=== PATIENT | male | born 1980 | race Caucasian/White ===

== ENCOUNTER 2025-08-16 18:18 | Emergency (ER) | payer OTHER, SELFPAY ==
[2025-08-16 18:31] VITALS: BP 184/104; PULSE 96; RESP 20; TEMP 37; O2SAT 99
--- NOTE | 2025-08-16 20:47 | ED.WOUNDLAC ---
HPI - Wound/Laceration General Chief Complaint: Wound/Laceration Stated Complaint: sore on butt Time Seen by Provider: 08/16/25 20:32 Source: patient and family Mode of arrival: ambulatory Limitations: no limitations History of Present Illness HPI narrative: This is a 45-year-old male with history of diabetes who presents the ED a skin infection. Patient states that for the past week he has noticed a bump to his right posterior upper thigh. He states that yesterday, he began to drain. He has been having worsening pain to the area since then. Denies fevers or chills. Denies burning with he went to urgent care today and he was referred here for further evaluation. Related Data Allergies Allergy/AdvReac Type Severity Reaction Status Date / Time No Known Allergies Allergy Verified 08/16/25 20:41 Review of Systems Review of Systems: Gen.: Denies fevers or chills Eyes: Denies eye pain or visual change ENT: Denies congestion Respiratory: Denies shortness of breath or cough CV: Denies chest pain or palpitations GI: Denies abdominal pain nausea, emesis or diarrhea denies burning, urgency, frequency or hematuria Musculoskeletal: Denies back pain or muscle pain Neuro: Denies numbness, tingling, weakness or focal weakness Skin: As per HPI Except as documented, all other systems reviewed and negative Exam Narrative: APPEARANCE: No acute distress, nontoxic, resting in bed HEENT: Normocephalic, atraumatic, OMM RESPIRATORY: No respiratory distress CARDIOVASCULAR: Appears well perfused ABDOMINAL: Nondistended MUSCULOSKELETAl: Moves all extremities. No obvious deformities NEURO: Awake and alert. SKIN:: 1 x 1 cm area of fluctuance with a small amount of purulosanguinous drainage PSYCHIATRIC: Normal affect/mood, Course Vital Signs Vital signs: Vital Signs Temperature 98.6 F 08/16/25 18:31 Pulse Rate 96 08/16/25 18:31 Respiratory Rate 20 08/16/25 18:31 Blood Pressure 184/104 H 08/16/25 18:31 Pulse Oximetry 99 08/16/25 18:31 Oxygen Delivery Room Air 08/16/25 18:31 Temperature 97.6 F 08/16/25 21:23 Pulse Rate 93 08/16/25 21:23 Respiratory Rate 18 08/16/25 21:23 Blood Pressure 134/81 08/16/25 21:23 Pulse Oximetry 98 08/16/25 21:23 Oxygen Delivery Room Air 08/16/25 18:31 Procedures Abscess I/D lower extremity: Date of Incision: 08/16/25 Time of Incision: 20:45 Side (if applicable): right Local Anesthetic: lidocaine 1% and with epi Amount of anesthesia used (mL): 4 Technique: incised with #11 blade Amount of fluid expressed (mL): 5 Irrigation: No Packing used?: iodoform I&D Results: Blood MDM MDM Narrative Medical decision making narrative: 45-year-old male Presenting for right posterior thigh wound. On initial evaluation patient was in no acute distress afebrile, hemodynamic stable. Differentials include but are not limited to: Abscess, cellulitis, hematoma Notable exam findings: 1 x 1 cm area of fluctuance to the right posterior upper thigh just inferior to the buttock There was a small amount drainage from the abscess there was bloody but there did feel to be some fluctuance stone because of this and the urine seizure. Review cultures were obtained. Patient will be started Bactrim. He was advised follow-up with PCP in the next week for re-evaluation. Patient and family were agreeable to this plan. Given strict return precautions. Differential Diagnosis Differential Diagnosis: Abscess, cellulitis, hematoma Discharge Plan Discharge Clinical Impression: Abscess Patient Disposition: Home Condition: Stable Instructions: Antibiotic Form, Abscess (ED) Additional Instructions: Change packing every other day. Take Bactrim as prescribed. Follow up with her PCP in the next few days for re-evaluation. Return to the ED for any new or worse symptoms. Patient Language: Surinamese Prescriptions: New sulfamethoxazole-trimethoprim [Bactrim DS] 800-160 mg tablet 1 tablet PO Q12H 7 Days Qty: 14 0RF Follow-up/Referrals: UNKNOWN,DOCTOR [Primary Care Provider]
[2025-08-16 21:23] VITALS: BP 134/81; PULSE 93; RESP 18; TEMP 36.4; O2SAT 98
[2025-08-16] MEDS: SULFAMETHOXAZOLE/TRIMETHOPRIM 800/160 MG DS TABLET 1 TAB PO (21:24)
--- OUTSIDE RECORDS SUMMARY | 2025-08-16 21:33 | XMS_ITS | Clinical Summary ---
Author Organization [facility] Address [address] [place] [address] Care Team Providers Care Site Coordinator Name Role Phone Pepe Rowan DO Primary Care Provider Allergies No known active allergies Medications pen needle, diabetic (Pen Needle) 32 gauge x 5/32 needle Use to inject insulin daily 200 each 1 4 Active lancets misc Use to check blood sugars daily 200 each 4 Active Additional Information Patient not taking.Reported on 03/06/2025 blood-glucose meter (OneTouch Verio Reflect Meter) misc USE TO TEST ONCE DAILY 1 each 4 Active blood glucose diagnostic (OneTouch Verio test strips) strip USE TO TEST ONCE DAILY 100 strip 1 4 Active cyclobenzaprine (FLEXERIL) 10 mg tablet Take 1 tablet (10 mg total) by mouth 3 (three) times a day as needed for muscle spasms 60 tablet 5 05/29/20 26 Active insulin syringe-needle U-100 0.5 mL 31 gauge x 5/16 syringe Use to inject 1-4 times daily as directed. 300 each 5 Active niacin ER (NIASPAN) 500 mg CR tablet Take 1 tablet (500 mg total) by mouth nightly 90 tablet 3 5 10/22/19 26 Active ketorolac (TORADOL) 10 mg tablet Take 1 tablet (10 mg total) by mouth every 6 (six) hours as needed for pain 20 tablet 5 Active Additional Information Patient not taking.Reported on 03/06/2025 LANTUS 100 unit/mL vial for injectionIndica tions:Type 2 diabetes mellitus with hyperglycemia, with long-term current use of insulin (HCC) INJECT 30 UNITS UNDER THE SKIN NIGHTLY 30 mL 1 5 Active glimepiride (AMARYL) 4 mg tablet TAKE 1 TABLET BY MOUTH 2 TIMES A DAY. 180 tablet 5 Active insulin degludec (TRESIBA) 100 unit/mL (3 mL) pen for injection Inject 0.3 mL (30 Units total) under the skin nightly 12 mL 5 Active Active Problems Problem Noted Date Diagnosed Date Morbid obesity 07/23/2024 Overview (01/23/2025): BMI 35 with DM Weight mgmt discussed Type 2 diabetes mellitus wit h hyperglycemia, with long-term current use of insulin 12/19/2023 Overview (01/23/2025): Diabetes requiring insulin and glimepiride A1c 7.8 in December 2023 A1c 9.7 in March 2024 A1c 10.0 in July 2024 A1c 10.1 in January 2025 Continue same medications Ophthalmology exam December 2023 Assessment & Plan (12/19/2023 11:36 AM CDT): Not controlled per home readings No idea what his A1c is - check today Routine physical examination 12/19/2023 Overview (01/23/2025): New: December 19, 2023 January 23, 2025 Cigarette smoker 12/19/2023 Overview (12/19/2023): Encouraged cessation (December 2023) Encounters Date Type Department Care Team Description 07/15/2025 Telephone [facility] Primary [facility] [address] [place] [address] Pepe Rowan, need insurance information 06/05/2025 Orders Only [facility] Orthopedics and Sports Medicine [address] [place] [address] [address] [place] [address] Vimal Ogden, DO Bilateral foot pain (Primary Dx) 05/28/2025 Orders Only [facility] Orthopedics and Sports Medicine [facility] [facility] [address] [place] [id number] Vimal Ogden, DO Bilateral foot pain (Primary Dx) from Last 3 Months Immunizations Immunization Administration Dates Next Due Influenza, Quadrivalent, Spl it, Preservative Free, Intramuscular 08/18/2015 Influenza, Unspecified 07/23/2024(Deferr ed: Patient Refused),12/03/2023(Deferred: Patient Refused) Pneumococcal Conjugate Pcv20 12/19/2023(Deferred : Patient Refused) Td, adsorbed 04/13/1995 Tdap 08/18/2015 Surgical History Surgery Date Site/Laterality Comments HERNIA REPAIR MULTIPLE TOOTH EXTRACTIONS Medical History Medical History Date Comments Diabetes mellitus Obesity Tobacco use ADHD (attention deficit hyperactivity disorder) Family History Medical History Relation Name Comments No Known Problems Father No Known Problems Mother Relation Name Status Comments Father Alive Mother Alive Social History Tobacco Use Types Packs/Day Years Used Date Smoking Tobacco: Every Day Cigarettes 0.5 16.7 Started: 12/18/2008 Tobacco Cessation:Ready to Q uit: Yes; Counseling Given: Not Answered AUDIT-C Answer Date Recorded Q1: How often do you have a drink containing alcohol? Never 12/19/2023 Q2: How many drinks containi ng alcohol do you have on a typical day when you are drinking? Patient does not drink Q3: How often do you have si x or more drinks on one occasion? Never 12/19/2023 PHQ-2 Answer Date Recorded PHQ-2 Total Score (If total score is 3 or more points, staff should administer the PHQ-9) 0 01/23/2025 Personal Safety Answer Date Recorded Have you ever been in or are you currently in a harmful physical or emotional relationship or is someone making you feel afraid or unsafe? 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 Not on file Not on file Not on file Last Filed Vital Signs Vital Sign Reading Time Taken Comments Blood Pressure 122/78 01/23/2025 4:17 PM CDT Pulse 91 01/23/2025 4:17 PM CDT Temperature 36.6 C (97.8 F) 01/23/2025 4:17 PM CDT Respiratory Rate 18 01/23/2025 4:17 PM CDT Oxygen Saturation 97% 01/23/2025 4:17 PM CDT Inhaled Oxygen Concentration - - Weight 123.4 kg (272 lb) 03/06/2025 8:45 AM CDT Height 185.4 cm (6' 1) 03/06/2025 8:45 AM CDT Body Mass Index 35.89 03/06/2025 8:45 AM CDT Plan of Treatment Health Maintenance Due Date Last Done Comments Colon Cancer Screening-Colonoscopy 1980 Foot Exam 1980 Varicella Vaccines (1 of 2 - 13+ 2-dose series) 1993 Pneumococcal vaccine <65 (1 of 2 - PCV) 1999 HPV Vaccines (1 - 3-dose SCD M series) 2007 Albumin Creatinine Ratio, Urine 12/18/2024 Lipid Panel 12/18/2024 12/19/2023, 10/18/2016 Influenza Vaccine (#1) 2025 08/18/2015 eGFR 07/23/2025 07/23/2024, 03/05, 01/02/2024, Additional history exists Hemoglobin A1C 07/26/2025 01/23/2025, 07/06, 03/19/2024, Additional history exists DTaP/Tdap/Td Vaccine (2 - Td or Tdap) 08/18/2025 08/18/2015, 04/13/1995 Depression Screening 01/23/2026 01/23/2025, 12/19/19 24 Regular Well Visit/Exam 18-64 01/23/2026, 01/23/2025, 12/19/2023 Dilated Eye Exam 11/09/2026 11/09/2024, 12/22/2023 Hepatitis C Screening Completed 12/19/2023 Hepatitis B Screening Completed 07/23/2024 Procedures Procedure Name Priority Date/Time Associated Diagnosis Comments POCT HEMOGLOBIN A1C Routine 01/23/2025 4 :27 PM CDT Type 2 diabetes mellitus with hyperglycemia, with long-term current use of insulin (HCC) DIABETIC EYE EXAM Routine 11/09/2024 10: 47 AM NUTRITION SERVICES ASSOCIATE EGFR Routine 07/23/2024 4:40 PM NUTRITION SERVICES ASSOCIATE Type 2 diabetes mellitus with hyperglycemia, with long-term current use of insulin (HCC) HEPATITIS C ANTIBODY Routine 12/19/2023 11:14 AM CDT Need for hepatitis C screening test LIPID PANEL Routine 12/19/2023 11:14 AM CDT Controlled type 2 diabetes mellitus with complication, with long-term current use of insulin (HCC) ALBUMIN CREATININE RATIO, URINE Routine 12/19/2023 11:14 AM CDT Controlled type 2 diabetes mellitus with complication, with long-term current use of insulin (HCC) from Last 3 Months or Most Recently Relevant to Health Maintenance Results * (ABNORMAL) POCT hemoglobin A1c (01/23/2025 4:27 PM CDT) Hemoglobin A1C, POC 10.1(A) 4.0 - 5.6 % Blood 01/23/2025 4:27 PM CDT Pepe Rowan DO POINT OF CARE TEST ORD ERABLES Final Result * Diabetic Eye Exam (11/09/2024 10:47 AM NUTRITION SERVICES ASSOCIATE) Historical Provider HEALTH MAINTENANCE Edited Result - Final * eGFR (07/23/2024 4:40 PM NUTRITION SERVICES ASSOCIATE) eGFR >90 >=60 mL/min/1. 73 m2 Comment: Interpretive Data Reference Interval Normal >/= 90 mL/min/1.73m2 Mildly decreased* 60 - 89 mL/min/1.73m2 Mildly to moderately decreased 45 - 59 mL/min/1.73m2 Moderately to severely decreased 30 - 44 mL/min/1.73m2 Severely decreased 15 - 29 mL/min/1.73m2 Kidney Failure < 15 mL/min/1.73m2 *Relative to young adult level Estimated glomerular filtration rate is determined by the 2020 CKD-EPI equation recommended by the National Kidney Foundation (A Unifying Approach to GFR Estimation: Recommendations of the NKF-ASK Task Force on Reassessing the Inclusion of Race in Diagnosing Kidney Disease, JASN 2020). The CKD-EPI equation should not be used for patients with unstable renal function and has not been validated in children and those over 70. Current interpretive data was last reviewed 2021. Testing performed by: [facility], [address] [place] [address]., [id number] Blood 07/23/2024 4:40 PM NUTRITION SERVICES ASSOCIATE 07/23/2024 5:09 PM NUTRITION SERVICES ASSOCIATE [facility] BLOOD ORDERABLES F inal Result Performing Organization Address [facility] Co de Phone Number [facility] [employer] [facility] [place] [address] * Hepatitis C antibody Blood (12/19/2023 11:14 AM CDT) Hep C Ab Nonreactive Nonreactive Comment: Antibodies to HCV not detected. Does NOT exclude the possibility of recent exposure to HCV. Current interpretive data was last revised on 22 Interpretive Data Nonreactive: Antibodies to HCV not detected. Does NOT exclude the possibility of recent exposure to HCV. Equivocal: Equivocal for HCV antibodies. Supplemental molecular testing will be automatically performed to determine infection status in accordance with current CDC screening recommendations. Reactive: Positive for HCV antibodies. This may represent current or past HCV infection. Supplemental molecular testing will be automatically performed to determine current infection status in accordance with current CDC screening recommendations. Interpretive data was last revised on 2019. Blood 12/19/2023 11:1 4 AM CDT 12/19/2023 3:10 PM CDT [facility] MICROBIOLOGY - GEN ERAL ORDERABLES Final Result Performing Organization Address [facility] Co de Phone Number [place] [phone] [facility] [place] [address] * Albumin Creatinine Ratio, Urine (12/19/2023 11:14 AM CDT) Albumin Ur 12.8 mg/L Comment: Interpretive Data No reference range established. Current interpretive data was last revised 2019. Testing performed by: [facility], [address] [place] [address]., [id number] Creatinine Ur 266.4 mg/dL [facility] Comment: Interpretive Data No reference range established. Current interpretive data was last revised 2019. Testing performed by: [address] [address] Albumin Creatinine Ratio, Ur 5 1 - 29 mg/g [facility] [place] Comment:Testing performed by : [address] [address] Urine 12/19/2023 11:1 4 AM CDT 12/19/2023 12:04 PM CDT Pepe Rowan LAB URINE ORDERABLES F inal Result [facility] [address] [facility] Department [place] [address] * (ABNORMAL) Lipid panel (12/19/2023 11:14 AM CDT) Cholesterol 160 30 - 199 mg/dL Comment: Interpretive Data Ages < or = 19 years Acceptable: <170 mg/dL Borderline high: 170-199 mg/dL High: >or= 200 mg/dL Ages > or = 20 years Desirable: <200 mg/dL Borderline high: 200-239 mg/dL High: >or= 240 mg/dL Literature References: 1. Expert Panel on Integrated Guidelines for Cardiovascular Health and Risk Reduction in Children and Adolescents. Pediatrics 2011;128:S213 2. NCEP Expert Panel. Circulation 2004;110:227 Current Interpretive Data was last revised on 2018. Testing performed by: [address] [address] Triglycerides 193(H) <=149 mg/dL [facility] Comment: Interpretive Data Ages < or = 9 years Acceptable: <75 mg/dL Borderline high: 75-99 mg/dL High: >or= 100 mg/dL Ages 10 to 20 years Acceptable: <90 mg/dL Borderline high: 90-129 mg/dL High: >or= 130 mg/dL Ages > or = 20 years Desirable: <150 mg/dL Borderline high: 150-199 mg/dL High: 200-499 mg/dL Very high: >or= 499 mg/dL Literature References: 1. Expert Panel on Integrated Guidelines for Cardiovascular Health and Risk Reduction in Children and Adolescents. Pediatrics 2011;128:S213 2. NCEP Expert Panel. Circulation 2004;110:227 Current Interpretive Data was last revised on 2018. Testing performed by: [address] [address] HDL 31(L) >=40 mg/dL [facility] Comment: Interpretive Data Ages < or = 19 years Acceptable: >45 mg/dL Borderline low: 40-45 mg/dL Low: <40 mg/dL Ages > or = 20 years Desirable: >or= 60 mg/dL Low: <40 mg/dL Literature References: 1. Expert Panel on Integrated Guidelines for Cardiovascular Health and Risk Reduction in Children and Adolescents. Pediatrics 2011;128:S213 2. NCEP Expert Panel. Circulation 2004;110:227 Current Interpretive Data was last revised on 2018. Testing performed by: [address] [address] LDL, calculated 90 <=129 mg/dL [facility] Comment: Interpretive Data Ages < or = 19 years Acceptable: <110 mg/dL Borderline high: 110-129 mg/dL High: >or= 130 mg/dL Ages > or = 20 years Optimal: <100 mg/dL Near optimal: 100-129 mg/dL Borderline high: 130-159 mg/dL High: >160 mg/dL Literature References: 1. Expert Panel on Integrated Guidelines for Cardiovascular Health and Risk Reduction in Children and Adolescents. Pediatrics 2011;128:S213 2. NCEP Expert Panel. Circulation 2004;110:227 Current Interpretive Data was last revised on 2018. Testing performed by: [address] [address] Non-HDL Cholesterol 129 mg/dL [facility] Comment: Interpretive Data Ages < or = 19 years Acceptable: <120 mg/dL Borderline high: 120-144 mg/dL High: >145 mg/dL Ages > or = 20 years When triglycerides are >200 mg/dL, Non-HDL cholesterol is a secondary target of therapy with treatment goals that are 30 mg/dL greater than the LDL cholesterol target. Literature References: 1. Expert Panel on Integrated Guidelines for Cardiovascular Health and Risk Reduction in Children and Adolescents. Pediatrics 2011;128:S213 2. NCEP Expert Panel. Circulation 2004;110:227 Current Interpretive Data was last revised on 2018. Testing performed by: [facility], [address] [place] [address]., [id number] Chol/HDL ratio 5 [facility] Comment:Testing performed by : [facility], [address] [place] [address]., [id number] Blood 12/19/2023 11:1 4 AM CDT 12/19/2023 12:04 PM CDT us Pepe Rowan DO LAB BLOOD ORDERABLES F inal Result [facility] [address] [facility] Department [place] [address] from Last 3 Months or Most Recently Relevant to Health Maintenance Care Teams Site Coordinator Relationship Specialty Start Date End Date Pepe Rowan DO [address] [place] [id number] PCP - General Family Medicine 12/19/23
== END 2025-08-16 21:54 | disposition home or self-care (01) ==
LOC: ANHED 21:31
PROVIDERS: Emergency Provider Student in an Organized Health Care Education/Training Program
DX: L02.415 Cutaneous abscess of right lower limb (principal); E11.9 Type 2 diabetes mellitus without complications
CPT/HCPCS: 10061; 99283; A9270